=== PATIENT | female | born 1990 | race Caucasian/White ===

== ENCOUNTER 2018-07-04 09:53 | Outpatient (CLI) | payer MEDICAID, SELFPAY | END 2018-07-04 10:13 | PROVIDERS: PCP Nurse Practitioner Family; Visit Provider Advanced Practice Midwife | DX: O20.0 Threatened abortion (principal) | CPT/HCPCS: 36415; 84702 ==

== ENCOUNTER 2018-07-07 13:52 | Outpatient (CLI) | payer MEDICAID, SELFPAY ==
[2018-07-07 15:38] LABS: HCG Quant, Pregnancy 29967 mIU/mL (1-3)
== END 2018-07-07 14:12 ==
PROVIDERS: Advanced Practice Midwife; PCP Nurse Practitioner Family; Visit Provider Advanced Practice Midwife
DX: O02.1 Missed abortion (principal)
CPT/HCPCS: 36415; 84702

== ENCOUNTER 2018-07-13 12:19 | Outpatient (CLI) | payer MEDICAID, SELFPAY ==
[2018-07-13 15:22] LABS: HCG Quant, Pregnancy 861 mIU/mL (1-3)
== END 2018-07-13 12:39 ==
PROVIDERS: PCP Nurse Practitioner Family; Visit Provider Obstetrics & Gynecology Gynecology
DX: O02.1 Missed abortion (principal)
CPT/HCPCS: 36415; 84702

== ENCOUNTER 2018-07-21 11:41 | Outpatient (CLI) | payer MEDICAID, SELFPAY ==
[2018-07-21 13:04] LABS: HCG Quant, Pregnancy 169 mIU/mL (1-3)
== END 2018-07-21 12:01 ==
PROVIDERS: PCP Nurse Practitioner Family; Visit Provider Obstetrics & Gynecology Gynecology
DX: O03.9 Complete or unspecified spontaneous abortion without complication (principal)
CPT/HCPCS: 36415; 84702

== ENCOUNTER 2018-07-28 14:32 | Outpatient (CLI) | payer MEDICAID, SELFPAY ==
[2018-07-28 15:07] LABS: HCG Quant, Pregnancy 64 mIU/mL (1-3)
== END 2018-07-28 14:52 ==
PROVIDERS: PCP Nurse Practitioner Family; Visit Provider Obstetrics & Gynecology Gynecology
DX: O03.9 Complete or unspecified spontaneous abortion without complication (principal)
CPT/HCPCS: 36415; 84702

== ENCOUNTER 2018-08-09 16:09 | Outpatient (CLI) | payer MEDICAID, SELFPAY ==
[2018-08-09 16:48] LABS: HCG Quant, Pregnancy 1 mIU/mL (1-3)
== END 2018-08-09 16:29 ==
PROVIDERS: PCP Nurse Practitioner Family; Visit Provider Obstetrics & Gynecology Gynecology
DX: O03.9 Complete or unspecified spontaneous abortion without complication (principal)
CPT/HCPCS: 36415; 84702

== ENCOUNTER 2018-11-01 15:45 | Outpatient (CLI) | payer MEDICAID, SELFPAY ==
[2018-11-01 17:20] LABS: Abs Immature Grans 0.03 k/cumm (0.0-0.09); Absolute Basophil Count 0.01 k/cumm (0.0-0.2); Absolute Monocyte Count 0.79 k/cumm (0.11-0.7); Basophils % 0.1; HCT 40.7 % (36.0-46.0); Immature Grans % 0.2; Lymphocytes % 20.3; Mean Corp. HGB Concentration 34.4 g/dL (32.0-36.0); Mean Corpuscular Hemoglobin 27.6 pg (27.0-33.0); Mean Corpuscular Volume 80.3 fL (80-95); Mean Platelet Volume 10.3 fL (8.0-11.0); Monocytes % 5.9; Neutrophils % 73.5; Platelet Count 273 x1000/uL (130-400); RBC 5.07 m/cumm (4.00-5.20); RBC Distribution Width 13.5 % (11.7-14.6); White Blood Cell Count 13.37 k/cumm (4.4-10.8)
[2018-11-01 17:26] LABS: Absolute Lymphocyte Count 2.71 k/cumm (1.2-3.4); Absolute Neutrophil Count 9.83 k/cumm (1.2-6.7)
[2018-11-01 17:33] LABS: TSH (W/Ref FT4) 0.76 uIU/mL (0.358-3.74)
[2018-11-01 17:59] LABS: *AMPHETAMINES SCREEN URINE Negative (Negative); *BARBITURATES SCREEN URINE Negative (Negative); *BENZODIAZEPINES SCREEN URINE Negative (Negative); Cannabinoids THC Negative (Negative); Cocaine Screen,Urine Negative (Negative); METHADONE URINE SCREEN Negative (Negative); OPIATES URINE SCREEN Negative (Negative)
[2018-11-01 18:40] LABS: Tricyclic Antidepressants Negative (Negative)
[2018-11-03 09:50] LABS: Hepatitis C Ab w Rflx HCV PCR Negative (NEGAT)
[2018-11-03 09:55] LABS: HIV-1/2 Ag & Ab Screen Negative (NEGAT)
[2018-11-03 10:29] LABS: Hepatitis B Surface Ag Negative (NEGAT)
[2018-11-03 11:39] LABS: Rubella IgG Ab (UVM) Positive
[2018-11-03 12:01] LABS: Varicella IgG Antibody Negative
[2018-11-03 12:06] LABS: Syphilis Serology (RPR) Negative (Negative)
[2018-11-03 15:24] LABS: Chlamydia Result Negative; GC Result Negative; Specimen Description URINE
[2018-11-05 09:51] LABS: Buprenorphine Negative; Norbuprenorphine Negative
== END 2018-11-01 16:05 ==
PROVIDERS: PCP Nurse Practitioner Family; Visit Provider Advanced Practice Midwife
DX: Z34.91 Encounter for supervision of normal pregnancy, unspecified, first trimester (principal); Z11.4 Encounter for screening for human immunodeficiency virus [HIV]; Z11.59 Encounter for screening for other viral diseases; Z11.3 Encounter for screening for infections with a predominantly sexual mode of transmission; Z01.84 Encounter for antibody response examination
CPT/HCPCS: 36415; 80055; 80307; 86787; 86803; 86850; 86900; 86901; 87340; 87389; 87491; 87591; 84443; 86592; 86762; 87086

== ENCOUNTER 2018-11-29 16:47 | Outpatient (REF) | payer MEDICAID, SELFPAY ==
[2018-12-01 14:45] LABS: Chlamydia Result Negative; GC Result Negative; Specimen Description URINE
== END 2018-11-29 17:07 ==
LOC: LBN 16:47
PROVIDERS: PCP Nurse Practitioner Family; Visit Provider Advanced Practice Midwife
DX: Z34.91 Encounter for supervision of normal pregnancy, unspecified, first trimester (principal); Z11.3 Encounter for screening for infections with a predominantly sexual mode of transmission
CPT/HCPCS: 87491; 87591

== ENCOUNTER 2018-12-28 15:11 | Outpatient (CLI) | payer MEDICAID, SELFPAY ==
[2018-12-28 16:33] LABS: Glucose,1 Hr (Glucola) 108 mg/dL (80-140)
== END 2018-12-28 15:31 ==
PROVIDERS: PCP Nurse Practitioner Family; Visit Provider Advanced Practice Midwife
DX: Z34.92 Encounter for supervision of normal pregnancy, unspecified, second trimester (principal)
CPT/HCPCS: 36415; 82950

== ENCOUNTER 2019-01-06 00:56 | Outpatient (CLI) | payer MEDICAID, SELFPAY ==
--- NOTE | 2019-01-06 15:58 | DI.US_ITS ---
Predicted Gestational Age: Indication/History: SURVEY,Z34.90 18.2 Wks Range: 17.2 to 19.2 Prior US done on: Determined by: First US X LMP History EDC by prior US: 06/07/19 For multiple gestations: Baby PLACENTA: Grade: O-I Location: Anterior X Posterior PRESENTATION: RT LT X LOW LYING PREVIA Cephalic Trans (Head RT LT ) Varied X Breech BIOMETRY: Anatomy Identified: BPD: 44 mm 19.2 wks 4 chamber Heart X Heart Rate 149 BPM HC: 166 mm 19.2 wks LVOT X Post Fossa X AC: 137 mm 19.1 wks RVOT X Ventricles X FL: 29 mm 18.5 wks Stomach X Nose X Bladder X Lips X Cisterna Magna: 3.2 mm CI: 83 Kidneys X Palate X Cerebellum: 1.9 mm 3 vessel cord X Spine X EFW: 268 grms 85TH Cord Insertion X NS= not seen Composite Age (US) 19.1 wks Many abnormalities cannot be diagnosed. A normal exam does not exclude congenital abnormality. EDC by US 06/01/19 Amniotic Fluid Index: Normal COMMENTS: RUQ: LUQ: RLQ: LLQ: Total: cm Biophysical Profile: Score 0/2 FARHAD (>2cm) Respirations (>30 sec) Body flexion/extension Extremity flexion/extension TOTAL SCORE OB ultrasound was performed utilizing second trimester protocol. biometry is consistent with a gestational age of 19 weeks 1 day and an EDC of 06/01/19. Placenta is anterior with no evidence of a placenta previa. There is a normal quantity of amniotic fluid. anomaly screen is within normal limits as per the OB ultrasound worksheet.
== END 2019-01-06 01:16 ==
PROVIDERS: PCP Nurse Practitioner Family; Visit Provider Advanced Practice Midwife
DX: Z34.92 Encounter for supervision of normal pregnancy, unspecified, second trimester (principal)
CPT/HCPCS: 76805

== ENCOUNTER 2019-03-22 02:32 | Outpatient (CLI) | payer MEDICAID, SELFPAY ==
[2019-03-22 11:37] LABS: Glucose,1 Hr (Glucola) 123 mg/dL (80-140); HCT 36.7 % (36.0-46.0); HGB 12.6 g/dL (12.0-15.5); Mean Corp. HGB Concentration 34.3 g/dL (32.0-36.0); Mean Corpuscular Hemoglobin 28.1 pg (27.0-33.0); Mean Corpuscular Volume 81.9 fL (80-95); Mean Platelet Volume 10.7 fL (8.0-11.0); Platelet Count 245 x1000/uL (130-400); RBC 4.48 m/cumm (4.00-5.20); RBC Distribution Width 13.5 % (11.7-14.6); White Blood Cell Count 11.44 k/cumm (4.4-10.8)
== END 2019-03-22 02:52 ==
PROVIDERS: PCP Nurse Practitioner Family; Visit Provider Advanced Practice Midwife
DX: Z34.92 Encounter for supervision of normal pregnancy, unspecified, second trimester (principal)
CPT/HCPCS: 36415; 82950; 85027

== ENCOUNTER 2019-05-11 12:38 | Outpatient (REF) | payer MEDICAID, SELFPAY ==
[2019-05-11 14:30] LABS: PROTEIN 13.5 mg/dL
[2019-05-11 14:33] LABS: *AMPHETAMINES SCREEN URINE Negative (Negative); *BARBITURATES SCREEN URINE Negative (Negative); *BENZODIAZEPINES SCREEN URINE Negative (Negative); Cannabinoids THC Negative (Negative); Cocaine Screen,Urine Negative (Negative); METHADONE URINE SCREEN Negative (Negative); OPIATES URINE SCREEN Negative (Negative)
[2019-05-11 14:35] LABS: COMMENT (LAB VIEW ONLY) 144.34 mg/dL; Prot/Crea Ur Ratio 0.09
[2019-05-11 14:35] LABS: Tricyclic Antidepressants Negative (Negative)
[2019-05-17 21:08] LABS: Buprenorphine Negative; Norbuprenorphine Negative
== END 2019-05-11 12:58 ==
LOC: LBN 12:38
PROVIDERS: PCP Nurse Practitioner Family; Visit Provider Advanced Practice Midwife
DX: Z34.90 Encounter for supervision of normal pregnancy, unspecified, unspecified trimester (principal); Z87.59 Personal history of other complications of pregnancy, childbirth and the puerperium
CPT/HCPCS: 80307; 82565; 84156; 87081

== ENCOUNTER 2019-06-01 11:19 | Outpatient (CLI) | payer MEDICAID, SELFPAY | END 2019-06-01 11:39 | PROVIDERS: PCP Nurse Practitioner Family; Visit Provider Advanced Practice Midwife | DX: O36.8130 Decreased fetal movements, third trimester, not applicable or unspecified (principal); Z3A.39 39 weeks gestation of pregnancy | CPT/HCPCS: 59025 ==

== ENCOUNTER 2019-06-05 16:20 | Inpatient (IN) | payer MEDICAID, SELFPAY ==
[2019-06-05 18:15] LABS: HCT 39.1 % (36.0-46.0); HGB 13.6 g/dL (12.0-15.5); Mean Corp. HGB Concentration 34.8 g/dL (32.0-36.0); Mean Corpuscular Volume 80.6 fL (80-95); Mean Platelet Volume 11.2 fL (8.0-11.0); Platelet Count 210 x1000/uL (130-400); RBC 4.85 m/cumm (4.00-5.20); RBC Distribution Width 14.2 % (11.7-14.6); White Blood Cell Count 16.11 k/cumm (4.4-10.8)
[2019-06-06] MEDS: Ibuprofen 600 MG TAB PO ×2 (01:30→09:17)
[2019-06-06] MEDS: Acetaminophen 325 MG TAB 650 MG PO (01:30)
[2019-06-06] MEDS: Hamamelis Leaf/Glycerin 100 EACH BOX PR (01:30)
[2019-06-06] MEDS: Docusate Sodium 100 MG CAP PO (09:17)
== END 2019-06-06 19:45 | disposition home or self-care (01) | DRG 807 ==
PROVIDERS: Admitting Provider Advanced Practice Midwife; PCP Nurse Practitioner Family; Visit Provider Advanced Practice Midwife
DX: O80 Encounter for full-term uncomplicated delivery (principal); Z37.0 Single live birth; Z3A.39 39 weeks gestation of pregnancy; Z79.82 Long term (current) use of aspirin; Z87.59 Personal history of other complications of pregnancy, childbirth and the puerperium
CPT/HCPCS: 36415; 80053; 85027; 86850; 86900; 86901; 84550; G0378

== ENCOUNTER 2019-07-18 12:48 | Outpatient (REF) | payer MEDICAID, SELFPAY ==
--- NOTE | 2019-07-18 11:50 | PAPFT_PTH ---
PATIENT: Lydia Bates LOC: [facility] U#:[id number] AGE/SX: 29/F ROOM: RE07/18/[address]: Bridget Maddox : 1990 BED: DIS: 07/18/2019 SPEC #: [id number] RECD: 07/18/19 18:47 STATUS: JUANCHO REImelda #: [id number] JANES: 07/18/19 11:[address]: Bridget Maddox DEPT: [facility] Cytology RECD BY: Dianna Botello ENTERED: 07/18/19 18:47 SP TYPE: PAPFT DARYN DR: Susan Mckeon, KARUNA Tissues: 1 - CX/ENDOCX FOR PAP SMEARS Procedures: PAP THIN PREP/UVM Screening Comments: [id number]
== END 2019-07-18 13:08 ==
LOC: LBN 12:48
PROVIDERS: PCP Nurse Practitioner Family; Visit Provider Advanced Practice Midwife
DX: Z12.4 Encounter for screening for malignant neoplasm of cervix (principal)
CPT/HCPCS: 88142

== ENCOUNTER 2020-09-24 11:07 | Outpatient (CLI) | payer MEDICAID, SELFPAY ==
[2020-09-24 11:26] LABS: Abs Immature Grans 0.04 10^3/uL (0.0-0.06); Absolute Basophil Count 0.02 10^3/uL (0.0-0.2); Absolute Eosinophil Count 0.02 10^3/uL (0.0-0.7); Absolute Lymphocyte Count 2.08 10^3/uL (1.2-3.4); Absolute Monocyte Count 0.67 10^3/uL (0.1-0.8); Absolute Neutrophil Count 8.93 10^3/uL (1.2-6.7); Basophils % 0.2; Eosinophils % 0.2; HCT 39.5 % (36.0-46.0); HGB 13.5 g/dL (11.2-15.7); Immature Grans % 0.3; Lymphocytes % 17.7; MCH 28.1 pg (27.0-33.0); MCHC 34.2 % (32.0-36.0); MCV 82.3 fL (80-95); MPV 9.7 fL (8.0-11.0); Monocytes % 5.7; Neutrophils % 75.9; Nucleated RBC 0 %; Platelet Count 271 10^3/uL (130-400); RDW 12.5 % (11.7-14.6); RDW-SD 37.8 fL; WBC 11.76 10^3/uL (4.4-10.8)
[2020-09-24 12:40] LABS: TSH (W/Ref FT4) 0.84 uIU/mL (0.36-3.74)
[2020-09-24 17:00] LABS: *AMPHETAMINES SCREEN URINE Negative (Negative); *BARBITURATES SCREEN URINE Negative (Negative); *BENZODIAZEPINES SCREEN URINE Negative (Negative); Cannabinoids THC Negative (Negative); Cocaine Screen,Urine Negative (Negative); METHADONE URINE SCREEN Negative (Negative); OPIATES URINE SCREEN Negative (Negative)
[2020-09-24 17:22] LABS: Tricyclic Antidepressants POSITIVE (Negative)
[2020-09-25 10:05] LABS: Hepatitis C Ab w Rflx HCV PCR Negative (Negative)
[2020-09-25 10:39] LABS: Rubella IgG Ab (UVM) Positive (See Note); Varicella IgG Antibody Negative (See Note)
[2020-09-25 11:43] LABS: Hepatitis B Surface Ag Negative (Negative)
[2020-09-25 12:21] LABS: HIV-1/2 Ag & Ab Screen Negative (Negative)
[2020-09-25 14:50] LABS: Syphilis Total Ab w/Reflex Nonreactive (Nonreactive)
[2020-09-26 14:45] LABS: Chlamydia Result Negative (Negative); GC Result Negative (Negative)
[2020-09-29 15:13] LABS: Buprenorphine Negative; Norbuprenorphine Negative
== END 2020-09-24 11:27 ==
PROVIDERS: PCP Nurse Practitioner Family; Visit Provider Advanced Practice Midwife
DX: Z34.91 Encounter for supervision of normal pregnancy, unspecified, first trimester (principal)
CPT/HCPCS: 36415; 80307; 86787; 86803; 86850; 86900; 86901; 87340; 87389; 87491; 87591; 84443; 85025; 86762; 86780; 87086

== ENCOUNTER 2020-11-23 19:03 | Outpatient (REF) | payer MEDICAID, SELFPAY ==
[2020-11-23 19:28] LABS: *AMPHETAMINES SCREEN URINE Negative (Negative); *BARBITURATES SCREEN URINE Negative (Negative); *BENZODIAZEPINES SCREEN URINE Negative (Negative); Cannabinoids THC Negative (Negative); Cocaine Screen,Urine Negative (Negative); METHADONE URINE SCREEN Negative (Negative); OPIATES URINE SCREEN Negative (Negative)
[2020-11-23 19:36] LABS: Tricyclic Antidepressants Negative (Negative)
== END 2020-11-23 19:04 | disposition home or self-care (01) ==
LOC: LBN 19:03
PROVIDERS: PCP Nurse Practitioner Family; Visit Provider Advanced Practice Midwife
DX: Z34.92 Encounter for supervision of normal pregnancy, unspecified, second trimester (principal)
CPT/HCPCS: 80307; 87086

== ENCOUNTER 2021-01-15 03:25 | Outpatient (CLI) | payer MEDICAID, SELFPAY ==
[2021-01-15 12:26] LABS: HCT 36.6 % (36.0-46.0); HGB 12.4 g/dL (11.2-15.7); MCH 28.2 pg (27.0-33.0); MCHC 33.9 % (32.0-36.0); MCV 83.2 fL (80-95); MPV 10.3 fL (8.0-11.0); Platelet Count 263 10^3/uL (130-400); RDW 12.8 % (11.7-14.6); WBC 12.85 10^3/uL (4.4-10.8)
[2021-01-15 12:42] LABS: Glucose,1 Hr (Glucola) 102 mg/dL (80-140)
== END 2021-01-15 03:26 | disposition home or self-care (01) ==
LOC: LBO 03:26
PROVIDERS: Advanced Practice Midwife; PCP Nurse Practitioner Family; Visit Provider Advanced Practice Midwife
DX: Z34.92 Encounter for supervision of normal pregnancy, unspecified, second trimester (principal); Z3A.27 27 weeks gestation of pregnancy
CPT/HCPCS: 36415; 82950; 85027

== ENCOUNTER 2021-03-15 16:43 | Outpatient (REF) | payer MEDICAID, SELFPAY ==
[2021-03-15 18:15] LABS: *AMPHETAMINES SCREEN URINE Negative (Negative); *BARBITURATES SCREEN URINE Negative (Negative); *BENZODIAZEPINES SCREEN URINE Negative (Negative); Cannabinoids THC Negative (Negative); Cocaine Screen,Urine Negative (Negative); METHADONE URINE SCREEN Negative (Negative); OPIATES URINE SCREEN Negative (Negative)
[2021-03-15 18:16] LABS: Tricyclic Antidepressants Negative (Negative)
[2021-03-21 01:49] LABS: Buprenorphine Negative ng/mL (Cutoff: 5.0); Norbuprenorphine Negative ng/mL (Cutoff: 2.5)
== END 2021-03-15 16:44 | disposition home or self-care (01) ==
LOC: LBN 16:43
PROVIDERS: PCP Nurse Practitioner Family; Visit Provider Advanced Practice Midwife
DX: Z34.93 Encounter for supervision of normal pregnancy, unspecified, third trimester (principal); Z36.85 Encounter for antenatal screening for Streptococcus B; Z3A.36 36 weeks gestation of pregnancy
CPT/HCPCS: 80307; 87081

== ENCOUNTER 2021-04-01 11:06 | Outpatient (CLI) | payer MEDICAID, SELFPAY ==
[2021-04-01 11:17] VITALS: BP 124/73; PULSE 84
[2021-04-01 11:27] VITALS: BP 123/83; PULSE 82
[2021-04-01 11:37] VITALS: BP 127/82; PULSE 81
[2021-04-01 11:46] VITALS: BP 127/82; PULSE 81; TEMP 37
--- NOTE | 2021-04-05 12:03 | W.OBNST ---
Date of service: 04/01/21 Time of Service: 11:15 NST Evaluation Reason for NST Reasons for Nonstress Test: OTHER, SEE COMMENT Reason for NST Other: Elevated BP in office Gestational Age Gestational Age in Weeks and Days: 39 Weeks and 0Days Test and Monitor Explained Test/Monitor Explained: Test Explained, Monitor Explained and Patient Verbalized Understanding Vital Signs Blood Pressure: 127/82 Pulse: 81 Temperature: 98.6 F Urine Results Urine Protein: Negative Urine Ketones: Negative Urine Glucose: Negative Urine Blood: Negative NST Information Date on Monitor: 04/01/21 Time on Monitor: 11:07 Date off Monitor: 04/01/21 Time off Monitor: 11:44 Total Time on Monitor: 37 NST Interventions: PO Hydration Contraction Frequency: 4-6 NST Evaluation Patient States Movement: Present FHR Baseline: 135 Variability: Moderate 6-25 bpm Accelerations: 15x15 Decelerations: Variable NST Results: Reactive Note NST Note Note: Reactive NST, baseline 135, moderate variability and accelerations noted. CAT I. Regular contractions, likely early labor.WESLEY NST Reviewed and Verified by: Bridget Jalloh
[2021-04-05 12:05] VITALS: BP 127/82; PULSE 81; TEMP 37
--- NOTE | 2021-04-09 06:33 | W.OBNST ---
Date of service: 04/01/21 Time of Service: 12:00 NST Evaluation Reason for NST Reasons for Nonstress Test: OTHER, SEE COMMENT Reason for NST Other: Elevated BP in office Gestational Age Gestational Age in Weeks and Days: 39 Weeks and 0Days Test and Monitor Explained Test/Monitor Explained: Test Explained, Monitor Explained and Patient Verbalized Understanding Vital Signs Blood Pressure: 127/82 Pulse: 81 Temperature: 98.6 F Urine Results Urine Protein: Negative Urine Ketones: Negative Urine Glucose: Negative Urine Blood: Negative NST Information Date on Monitor: 04/01/21 Time on Monitor: 11:07 Date off Monitor: 04/01/21 Time off Monitor: 11:44 Total Time on Monitor: 37 NST Interventions: PO Hydration Contraction Frequency: 4-6 NST Evaluation Patient States Movement: Present FHR Baseline: 135 Variability: Moderate 6-25 bpm Accelerations: 15x15 Decelerations: Variable NST Results: Reactive Note NST Note NST Reviewed and Verified by: Violeta Zendejas
[2021-04-09 06:34] VITALS: BP 127/82; PULSE 81; TEMP 37
== END 2021-04-01 11:50 | disposition home or self-care (01) ==
LOC: BCD 11:08 → OBS 11:10
PROVIDERS: PCP Nurse Practitioner Family; Visit Provider Advanced Practice Midwife
DX: O26.893 Other specified pregnancy related conditions, third trimester (principal); R03.0 Elevated blood-pressure reading, without diagnosis of hypertension; Z3A.39 39 weeks gestation of pregnancy
CPT/HCPCS: 59025

== ENCOUNTER 2021-04-02 05:18 | Inpatient (IN) | payer MEDICAID, SELFPAY ==
[2021-04-02] VITALS (14 sets, daily range): BP systolic 113–139; BP diastolic 61–90; PULSE 86–113; RESP 16–18; TEMP 36.5–36.8
[2021-04-02 04:59] LABS: Source Nasal/Nares
--- NOTE | 2021-04-02 05:05 | W.PM.OBHPL1 ---
Date of service: 04/02/21 Time of Service: 05:05 Assessment and Plan Assessment and plan (1) Uterine contractions: Status: Acute Assessment and plan: will observe on triage assessment with plan to admit when 5-6 cm. will support non intervention at this time but obtain COVID swab as it is likely that patient will progress in labor. NST reactive will allow for FHT every hour if in tub and tracing on monitor every 2 hours or so until active labor. aware that patient is here in early labor by page system message. Expect advancing labor, admission and NVD.WESLEY OB-HPI Labor/Delivery History of Present Illness Reason for Visit: PRE-MARIZOL Chief Complaint: Uterine Contractions. CUAUHTEMOC Calculator Estimated Delivery Date Method Current WG Current Estimate 04/09/21 LMP (Certain) 39w 0d Other Estimates 04/10/21 Ultrasound #1 38w 6d Comments: 31 y.o. at 39w 0d states she started with irregular contractions at noon on 04/01/21 with increasing intensity and frequency to 5-8 minutes apart at 0300 on 04/02/21. No ROM or show. Baby has been active. Prefers to use tub and avoid interventions if possible. is present and supportive. Mild risk of PPH based on BMI but no history is aware of active management of third stage. Will observe and allow to rest and or use tub for labor relief. NST done. WESLEY History of Present Expected Delivery Route/Plan - CNM FOB/ - Gildardo Bates (3rd child with pt) BG- Faby Padilla Hopes to use tub for labor, maybe have a waterbirth Varicella Non-Immune, offer vaccination GBS negative Specific Issues/Plan 1. Needs early gct 2` to bmi>30. 1a. Declines early 1-hr GTT. Declination form signs. 2. Declines all optional labs, declination signed.al 3. History of anxiety/depression 4. Pos. tricyclic antidepressant on UDS- patient denies any meds- repeat UDS 11/23/20 was neg. 5. Varicella non-immune - offer vaccine post , pt counseled, patient is undecided re: vaccine post . 6. Had elevated BP at end of first preg, to start low dose ASA 81 mg/162 mg PO alternating, @ 20 wks Assessment: History Reviewed & Current Review of Systems All systems reviewed & are unremarkable except as noted in HPI and below PFSH Medical History Anxiety and depression Chlamydia Headache Lazy eye Childhood, resolved ovarian cysts Surgical History History of excision of hemangioma (11/13/16) Abdomen Family History Mother Depression Father Diabetes Essential hypertension Brother CD (Crohn's disease) Brother Hepatitis C Grandmother Diabetes Breast cancer Grandfather , Cancer at age 70. Neoplasm ?? primary Grandfather Heart disease Other Mental disorder Social History Smoking/Tobacco Use Status: Never Smoking risk assessment performed?: Yes Alcohol Intake: former Substance use type: does not use Adopted: No Caregiver/Support person: No Foster care: No Household members: spouse, children and other Details: daughter ~2yo Housing: house Number of Children: 2 Communication Needs: None Do you need help understanding health information?: Never Pets and animals: Yes Pets and animals: dog(s), fish and other Details: rabbit Sexually active: Yes Do you think of yourself as: straight/heterosexual Current gender identity: female What is your relationship status?: How often do you talk on the phone with friends or family?: twice per week How often do you get together with friends or relatives?: once per week How often do you attend christian or confucianist services?: 4 or more times per year Do you belong to any clubs or organized social groups?: no Panel score (0-1 are the most socially isolated patients): 3 What type of physical activity do you participate in: walking, aerobic and weight lifting Duration: 15-30 minutes/day Frequency: 1-2 times per week Gail/Sabianist: Uatsdin Special gail needs: No Seatbelt use: always Helmet use: Yes Drive intox or ride w/intox diesel pile driver operator: No Do you feel safe in your relationship?: Yes Female Reproductive History Menstrual control method: none History History 3 Para 2 Hx # Term Pregnancies 2 Multiple births 0 Hx # Pregnancies 0 Ectopic pregnancies 0 AB induced 0 Hx Number of Living Children 1 AB spontaneous 1 Past Pregnancies Del. Date GA/Weeks # Outcome Route Wgt Sex Labor Lgth Anesthesia Location Prov Complic 01/23/17 37 No Successful vaginal 5 lb 15 oz Female 5 hrs [facility] - Anea 07/07/18 8 Unsuccessful 06/05/19 39 No Successful vaginal 8 lb 1 oz Male 2 hrs 35 min [facility] AvelinaGOLDIE Delivery Date: 01/23/17 water broke at 37 wks, went into labor which was fast. Difficulty with latch, jaundice. Bridget Fountain Delivery Date: 07/07/18 missed SAB, took Violeta Villegas Delivery Date: 06/05/19 Bridget Soares Meds Allergies and Home Medications Allergies Allergy/AdvReac Type Severity Reaction Status Date / Time seasonal allergies AdvReac Mild Uncoded 04/02/21 05:11 Home Medications Medication Instructions Recorded Confirmed Type aspirin 81 mg tablet,delayed 81 mg PO DAILY #60 tab 11/23/20 11/23/20 Rx release cetirizine 10 mg tablet 10 mg PO DAILY PRN #30 tab 11/23/20 11/23/20 Rx vitamins with calcium 1 tab PO DAILY #90 tab 11/23/20 11/23/20 Rx no.72-iron 29 mg-folic acid 1 mg tablet cholecalciferol (vitamin D3) 50 4,000 unit PO DAILY cap 01/29/21 History mcg (2,000 unit) capsule magnesium oxide 400 mg PO DAILY #90 tab 03/15/21 03/15/21 Rx riboflavin (vitamin B2) 400 mg 400 mg PO DAILY #90 tab 03/15/21 03/15/21 Rx tablet Exam Physical Exam Vital signs: 136/84 pulse 103 this was obtained during a contraction.KH Vital Signs Reviewed: Yes Constitutional Constitutional: no acute distress and obese Detailed Labor and Delivery Exam Dilation: 3 Effacement (%): 90 station: -1 Position: ZACHARY Cervix position: posterior Consistency: soft Cruz Score: Cervical Points Exam 0 1 2 3 Dilation Closed 1-2cm 3-4 cm 5-6cm Effacement 0-30% 40-50% 60-70% 80% Consistency Firm Medium Soft Station -3 -2 -1,0 +1,+2 Position Posterior Mid Anterior CRUZ Score(Cervical Ripeness Score): 10 Amniotic Membrane Status: Intact Contraction Frequency(min): 3-5 Contraction Duration(sec): 40-60 Contraction Intensity: Moderate Fetus A Heart Rate Baseline: 125 Monitor Accelerations: 15 X 15 Monitor Decelerations: None Variability: Moderate (6-25 BPM) Presentation: Cephalic Categories: Category I Est. Weight: 7 lb HEENT Exam HEENT Exam: Normal Neck Exam Neck Exam: Normal Chest/Brest/Axilla Exam Chest Exam: Normal Breast Exam Breast Exam: Normal Respiratory Exam Respiratory Exam: Normal Cardiovascular Exam Cardiovascular Exam: Normal (mild tachycardia with contractions) Abdominal Exam Abdominal Exam: Normal Rectal Exam Rectal Exam: Not Done Exam Exam: Normal Extremities Exam Extremities Exam: Normal Back/Spine/Pelvis Exam Back Exam: Not Done Pelvis Adequate: Yes (proven to 8lb 1oz) Skin Exam Skin Exam: Normal Neurological Exam Neurological Exam: Normal Psychiatric Exam Psychiatric Exam: Normal Risk Assessment Risk for Shoulder Dystocia Historical/Initial OB: POSITIVE FOR: Pre- BMI>30; NEGATIVE FOR: Pelvic Abnormality, Previous Shoulder Dystocia or Previous Macrosomia 40 Weeks: NEGATIVE FOR: EFW> 4500 gms, Maternal Weight Gain >40lb or Post Dates Increased Risk?: No Delivery Plan @ 36wks: proven to 8'1 Risk for Pre-Eclampsia Daily Dose ASA Indicated: Yes Date Initiated/Initials: will start 11/22/18, JK Yes, if one or more: POSTIVE FOR: Hx Pre-E/Gest HTN (delivered prior to w/up); NEGATIVE FOR: Chronic HTN, Multiple Gestation, Pre-gestational DM, Renal Disease, Systemic Lupus or APA Syndrome Yes, if 2 or more: POSITIVE FOR: BMI>30; NEGATIVE FOR: Nulliparity, Age>= 35 yrs, >10yr btwn pregnancies, ethinicty, Mother/Sister w/ Pre-E or Previous IUGR Risk for Post- Hemorrhage Initial: NEGATIVE FOR: Multiple Gestation, Previous PPH, Known Clotting Deficiency, Grand Multiparity or Anticoagulation At Risk?: No Interventions: may be slight increased risk due to BMI.KH Counseled re: Active Management: Yes Risks Reviewed Risks Reviewed Upon Admission: Yes
[2021-04-02 05:49] LABS: COVID-19 PCR Negative (Negative)
[2021-04-02] MEDS: Oxytocin 10 UNITS/ML VIAL IM (06:45)
--- NOTE | 2021-04-02 07:12 | OBVDS_ITS ---
Date of service: 04/02/21 Time of Service: 07:12 OB Labor/ Delivery Information Baby A Delivery Delivery Method: Spontaneaous Presentation: Cephalic Cephalic Position: Vertex Vertex Position: Left Occipital Anterior Cord Description-Baby A: 3 Vessels and Clamped/Cut Cord Description Comment: normal in appearance Amniotic Fluid: Clear Estimated Blood Loss: 200 Delivery Outcome: Liveborn Infant Complications: none Infant Transferred: Remains with Mother Note: Lydia progressed quickly in 1 hour from 3cm to 9 and urge to bear down. she moved to tub for waterbirth. With excellent bearing down effort, a live born female was delivered over intact perienum at 0643. Baby was brought to Mother's chest with lower body remaining in warm water. 9 at 1 minute and 9 at 5 minutes. After baby was born, Pitocin 10 units IM was given. Placenta delivered spontaneously at 0656, intact. Fundus firms and Mother is moved from tub to bed to inspect perineum and vagina which were again noted to be intact. Fundus firm at U, with small lochia. Baby will remain with Mother skin to skin for grullon hour and breast feeding is established as long as baby is well. Parents use NFP for contraception. Mia Padilla is baby's name. Mother and baby are in satisfactory condition. Expect normal PP course and probable discharge in 24 hours. See completed delivery summary for baby's weight. Providers Nurse Back Tender Fourdrinier: Bridget Jalloh Labor/Delivery Information Number of Babies in Womb: 1 Steroids Given: None Reason Steroids Not Administered: N/A Group Beta Strep: Negative Antibiotics Administered: No Rubella Status: Immune Varicella Immunity: Nonimmune Born En Route: No Maternal Complications: None Shoulder Dystocia: No Stages of Labor Placenta Cultured: No Placenta Status: Delivered Baby A Gender: Female Gestational Status: Term (39-41.6 wks)
[2021-04-02 07:48] LABS: HGB 13.7 g/dL (11.2-15.7); MCH 27.5 pg (27.0-33.0); MCHC 33.4 % (32.0-36.0); MCV 82.2 fL (80-95); MPV 11.1 fL (8.0-11.0); Platelet Count 219 10^3/uL (130-400); RBC 4.99 10^6/uL (3.93-5.22); RDW 13.9 % (11.7-14.6); RDW-SD 40.9 fL
[2021-04-02] MEDS: Acetaminophen 325 MG TAB 650 MG PO ×2 (08:28→20:07)
[2021-04-02] MEDS: Varicella Virus Vaccine (Live) 0.5 ML SC (13:05)
[2021-04-02] MEDS: Ibuprofen 600 MG TAB PO (16:32)
[2021-04-02] MEDS: Docusate Sodium 100 MG CAP PO (22:05)
[2021-04-03 07:30] VITALS: BP 118/83; PULSE 84; RESP 14; TEMP 36.7
--- NOTE | 2021-04-03 10:48 | W.PM.OBDISCH ---
Date of service: 04/03/21 Time of Service: 10:49 DS: Diagnosis Discharge Diagnosis (1) Normal vaginal delivery: Status: Acute Asessment and Plan: Caring for baby independently. Pain is managed well with oral analgesics. Voiding without difficulty. well. Lydia has had difficulty with in the past and is knowledgeable about positions to assist with latch. A - stable mother and baby , Post day 1 P - Discharge to home today . Routine post instructions. [facility] Discharge Plan Discharge Details Reason For Visit: Latent Labor Admit Date/Time: 04/02/21 06:28 Admit Provider: Bridget Jalloh Attending Provider: Bridget Jalloh Primary Care Provider: Susan Mckeon Home Meds and New Rx's Prescriptions: Continued riboflavin (vitamin B2) 400 mg tablet 400 mg PO DAILY Qty: 90 RF: 1 magnesium oxide 400 mg magnesium tablet 400 mg PO DAILY Qty: 90 RF: 1 cholecalciferol (vitamin D3) 50 mcg (2,000 unit) capsule 4,000 unit PO DAILY RF: 0 Plus 29 mg iron- 1 mg tablet 1 tab PO DAILY Qty: 90 RF: 2 cetirizine [Zyrtec] 10 mg tablet 10 mg PO DAILY PRN (Reason: allergy symptoms) Qty: 30 RF: 1 Discontinued aspirin 81 mg tablet,delayed release (DR/EC) 81 mg PO DAILY Qty: 60 RF: 4 Discharge Instructions Stand Alone Forms: BC Instructions, BC Post Vaginal Deliver Activity:: Activity as Tolerated Activity:: Activity as Tolerated Equipment/Supplies:: No Equipment Needed Diet:: As Tolerated OB:DS Summary Summary Vaginal Delivery Method: Spontaneaous Episiotomy Description: None Laceration Description: None Laceration Extension: N/A Contraception Discussed Contraception Discussed: Yes Contraceptive Plan: Foam/Condoms (with Natural Family Planning.), [place] Infant Gender-Baby A: Female Status at Discharge Functional status at discharge: independent ambulation Overall status at discharge: patient is back to baseline Mental Status: mental status grossly normal Speech and Movement: speech and movement normal Mood: congruent mood Affect: normal affect Exam Physical Exam Vital signs: Temp Pulse Resp BP 98.1 F 84 14 118/83 04/03/21 07:30 04/03/21 07:30 04/03/21 07:30 04/03/21 07:30 Constitutional Constitutional: no acute distress Neck Exam Neck Exam: Normal Respiratory Exam Respiratory Exam: Normal Cardiovascular Exam Cardiovascular Exam: Normal Fundal Exam Fundus: Below Umbilicus Rectal Exam Rectal Exam: Normal Extremities Exam Extremity Exam: Normal Back/Spine/Pelvis Exam Back Exam: Normal Skin Exam Skin Exam: Normal Psychiatric Exam Psychiatric Exam: Normal [facility] Medical History Anxiety and depression Chlamydia Headache Lazy eye Childhood, resolved ovarian cysts Surgical History History of excision of hemangioma (11/13/16) Abdomen Family History Mother Depression Father Diabetes Essential hypertension Brother CD (Crohn's disease) Brother Hepatitis C Grandmother Diabetes Breast cancer Grandfather , Cancer at age 70. Neoplasm ?? primary Grandfather Heart disease Other Mental disorder Social History Smoking/Tobacco Use Status: Never Smoking risk assessment performed?: Yes Alcohol Intake: former Substance use type: does not use Adopted: No Caregiver/Support person: No Foster care: No Household members: spouse, children and other Details: daughter ~2yo Housing: house Number of Children: 2 Communication Needs: None Do you need help understanding health information?: Never Pets and animals: Yes Pets and animals: dog(s), fish and other Details: rabbit Sexually active: Yes Do you think of yourself as: straight/heterosexual Current gender identity: female What is your relationship status?: How often do you talk on the phone with friends or family?: twice per week How often do you get together with friends or relatives?: once per week How often do you attend yazidi or latter-day services?: 4 or more times per year Do you belong to any clubs or organized social groups?: no Panel score (0-1 are the most socially isolated patients): 3 What type of physical activity do you participate in: walking, aerobic and weight lifting Duration: 15-30 minutes/day Frequency: 1-2 times per week Gail/Catholic: Restoration Special gail needs: No Seatbelt use: always Helmet use: Yes Drive intox or ride w/intox driver utility worker: No Do you feel safe in your relationship?: Yes Female Reproductive History Menstrual control method: none History History 3 Para 2 Hx # Term Pregnancies 2 Multiple births 0 Hx # Pregnancies 0 Ectopic pregnancies 0 AB induced 0 Hx Number of Living Children 1 AB spontaneous 1 Past Pregnancies Del. Date GA/Weeks # Outcome Route Wgt Sex Labor Lgth Anesthesia Location Prov Complic 01/23/17 37 No Successful vaginal 5 lb 15 oz Female 5 hrs [facility] - [facility] 07/07/18 8 Unsuccessful 06/05/19 39 No Successful vaginal 8 lb 1 oz Male 2 hrs 35 min [facility] GOLDIE Quan Delivery Date: 01/23/17 water broke at 37 wks, went into labor which was fast. Difficulty with latch, jaundice. Bridget Fountain Delivery Date: 07/07/18 missed SAB, took Violeta Villegas Delivery Date: 06/05/19 Bridget Soares DS: Data Vitals/I&O Vitals and I&O: Vital Signs Temperature 98.1 F 04/03/21 07:30 Pulse 84 04/03/21 07:30 Pulse Rhythm Regular 04/03/21 07:30 Respiratory Rate 14 04/03/21 07:30 Respiratory Depth Normal 04/02/21 19:30 Blood Pressure 118/83 04/03/21 07:30 Blood Pressure Mean 94 04/03/21 07:30 Pain Level 3 04/02/21 16:32 Intake & Output 04/02/21 04/02/21 04/03/21 11:59 23:59 11:59 Output Total 500 / 2410 1909 Balance -500 / -2410 -1909 / -2409 Output: Urine 1909 Blood 500 / 500 Other: Urine Color Yellow Yellow Dark Red
== END 2021-04-03 13:05 | disposition home or self-care (01) | DRG 807 ==
PROVIDERS: Admitting Provider Advanced Practice Midwife; PCP Nurse Practitioner Family; Visit Provider Advanced Practice Midwife
DX: O99.344 Other mental disorders complicating childbirth (principal); Z37.0 Single live birth; F41.8 Other specified anxiety disorders; Z3A.39 39 weeks gestation of pregnancy
CPT/HCPCS: 36415; 85027; 86850; 86900; 86901; 87635; G0378; J2590

== ENCOUNTER 2022-12-23 02:31 | Outpatient (CLI) | payer MEDICAID, SELFPAY ==
[2022-12-23 10:19] LABS: Glucose 103 mg/dL (74-106)
[2022-12-23 10:32] LABS: Calculated LDL 88 mg/dL (<100); Cholesterol 162 mg/dL (<200); HDL Cholesterol 56 mg/dL (40-60); Triglyceride 91 mg/dL (<150)
== END 2022-12-23 02:32 | disposition home or self-care (01) ==
LOC: LBO 02:32
PROVIDERS: PCP Nurse Practitioner Family; Visit Provider Nurse Practitioner Family
DX: R63.5 Abnormal weight gain (principal); E78.5 Hyperlipidemia, unspecified; Z13.1 Encounter for screening for diabetes mellitus
CPT/HCPCS: 36415; 80061; 82947; 84443

== ENCOUNTER 2023-01-12 11:49 | Outpatient (REF) | payer MEDICAID, SELFPAY ==
--- NOTE | 2023-01-12 11:30 | PAPFT_PTH ---
PATIENT: Lydia Bates LOC: [facility] U#:[id number] AGE/SX: 33/F ROOM: RE01/12/[address]: June Barker NP : 1990 BED: DIS: 01/12/2023 SPEC #: [id number] RECD: 01/12/23 12:55 STATUS: JUANCHO REImelda #: [id number] JANES: 01/12/23 11:[address]: Mj MANJARREZ,June DEPT: [facility] Cytology RECD BY: Dianna Botello ENTERED: 01/12/23 12:55 SP TYPE: PAPFT OTHR DR: Susan Mckeon APRN Tissues: 1 - CX/ENDOCX FOR PAP SMEARS Procedures: PAP THIN PREP/UVM Screening HPV DNA PROBE Comments: [id number]
== END 2023-01-12 11:50 | disposition home or self-care (01) ==
LOC: LBN 11:49
PROVIDERS: PCP Nurse Practitioner Family; Visit Provider Nurse Practitioner Women's Health
DX: Z12.4 Encounter for screening for malignant neoplasm of cervix (principal); Z11.51 Encounter for screening for human papillomavirus (HPV)
CPT/HCPCS: 88142; 87624

== ENCOUNTER 2023-10-23 02:45 | Outpatient (CLI) | payer MEDICAID, SELFPAY ==
[2023-10-23 14:27] LABS: Abs Immature Grans 0.03 10^3/uL (0.0-0.06); Absolute Basophil Count 0.02 10^3/uL (0.0-0.2); Absolute Eosinophil Count 0.02 10^3/uL (0.0-0.7); Absolute Lymphocyte Count 2.15 10^3/uL (1.2-3.4); Absolute Monocyte Count 0.51 10^3/uL (0.1-0.8); Absolute Neutrophil Count 7.45 10^3/uL (1.2-6.7); Basophils % 0.2; Eosinophils % 0.2; HCT 40.4 % (36.0-46.0); HGB 13.6 g/dL (11.2-15.7); Immature Grans % 0.3; Lymphocytes % 21.1; MCHC 33.7 % (32.0-36.0); MCV 80 fL (80-95); MPV 10.2 fL (8.0-11.0); Neutrophils % 73.2; Platelet Count 292 10^3/uL (130-400); RBC 5.03 10^6/uL (3.93-5.22); RDW 12.6 % (11.7-14.6); RDW-SD 36.6 fL; WBC 10.18 10^3/uL (4.4-10.8)
[2023-10-23 14:41] LABS: Glucose,1 Hr (Glucola) 113 mg/dL (80-140)
[2023-10-23 22:31] LABS: Hepatitis B Surface Ag Negative (Negative)
[2023-10-23 23:00] LABS: Hepatitis C Ab w Rflx HCV PCR Negative (Negative)
[2023-10-23 23:02] LABS: HIV-1/2 Ag & Ab Screen Negative (Negative)
[2023-10-25 15:33] LABS: Syphilis IgG w/Reflex Nonreactive (Nonreactive)
[2023-10-26 10:31] LABS: Varicella IgG Antibody Positive (See Note)
[2023-10-26 10:32] LABS: Rubella IgG Ab (UVM) Positive (See Note)
== END 2023-10-23 02:46 | disposition home or self-care (01) ==
LOC: LBO 02:45
PROVIDERS: PCP Nurse Practitioner Family; Visit Provider Advanced Practice Midwife
DX: Z34.91 Encounter for supervision of normal pregnancy, unspecified, first trimester (principal)
CPT/HCPCS: 36415; 82950; 86787; 86803; 86850; 86900; 86901; 87340; 87389; 84443; 85025; 86762; 86780

== ENCOUNTER 2023-10-23 14:31 | Outpatient (REF) | payer MEDICAID, SELFPAY ==
[2023-10-25 13:42] LABS: Chlamydia Result Negative (Negative); GC Result Negative (Negative)
== END 2023-10-23 14:32 | disposition home or self-care (01) ==
LOC: LBN 14:31
PROVIDERS: PCP Nurse Practitioner Family; Visit Provider Advanced Practice Midwife
DX: Z34.91 Encounter for supervision of normal pregnancy, unspecified, first trimester (principal)
CPT/HCPCS: 87491; 87591; 87086

== ENCOUNTER 2023-11-13 16:24 | Outpatient (CLI) | payer MEDICAID, SELFPAY ==
[2023-11-13 16:18] LABS: Panorama Kit Sent via Fed Ex
== END 2023-11-13 16:25 | disposition home or self-care (01) ==
LOC: LBO 16:24
PROVIDERS: PCP Nurse Practitioner Family; Visit Provider Advanced Practice Midwife
DX: Z34.92 Encounter for supervision of normal pregnancy, unspecified, second trimester (principal)
CPT/HCPCS: 36415

== ENCOUNTER → 2023-12-14 03:16 | Outpatient (CLI) | payer MEDICAID, SELFPAY ==
--- NOTE | 2023-12-14 08:15 | DI.US_ITS ---
Exam(s) US OB 2-3 TRIMESTER EXAM: US OB 2-3 TRIMESTER CLINICAL HISTORY: anatomy,Z34.91. TECHNIQUE: Transabdominal obstetrical ultrasound performed. COMPARISON: US POCUS EXAM from 10/23/2023 FINDINGS: Number of fetuses: One. position: Vertex. Placental grade: 1 Placental location: Anterior. Low lying. The placental edge measures 1 cm from the internal os. BIOMETRIC DATA: BPD: 44mm = 19+ 2 weeks HC: 164mm = 19+ 1 weeks AC: 137mm = 19+ 1 weeks FL: 31mm = 19+ 4 weeks Cisterna Magna: 5 mm Cerebellum: 1.8 cm EFW: 286 grms 87% Composite Age: 19+ 2 weeks EDC by US: 07 May 2024 Heart Rate: 148BPM Amniotic fluid : Amount of fluid is within normal limits. ANATOMICAL SURVEY: Four-chambered heart: Unremarkable. LVOT: Unremarkable. RVOT: Unremarkable. Left-sided stomach: Unremarkable. urinary bladder: Unremarkable. Bilateral kidneys: Unremarkable. Three-vessel cord: Unremarkable. Cord insertion: Unremarkable. Posterior fossa:Unremarkable. ventricles: Unremarkable. nose: Unremarkable. lips: Unremarkable. palate: Unremarkable. spine: Unremarkable. Two arms and two legs: Unremarkable. IMPRESSION: 1. Single live intrauterine gestation with ultrasound composite age of 19 weeks 2 days.. 2. Normal anatomic survey. DATA REPOSITORY:
== END ==
PROVIDERS: PCP Nurse Practitioner Family; Visit Provider Advanced Practice Midwife
DX: O44.42 Low lying placenta NOS or without hemorrhage, second trimester (principal); Z3A.19 19 weeks gestation of pregnancy
CPT/HCPCS: 76805

== ENCOUNTER → 2024-02-22 04:24 | Outpatient (CLI) | payer MEDICAID, SELFPAY ==
--- NOTE | 2024-02-22 07:15 | DI.US_ITS ---
Exam(s) US OB F/U FACIAL/LVOT/RVOT EXAM: US OB F/U FACIAL/LVOT/RVOT CLINICAL HISTORY: f/u placental location,O44.40. COMPARISON: US US OB 2-3 TRIMESTER from 12/14/2023 TECHNIQUE: Transabdominal obstetrical ultrasound performed. FINDINGS: Sonographic images demonstrate a single intrauterine gestation in cephalic position. heart rate motion is Dopplered at: 142 bpm. nose/lips: Unremarkable. Placenta: Anterior. The tip lies 9.5 cm from the internal os. Amniotic fluid index: Amount of fluid is within normal limits. IMPRESSION: Anterior placenta. Placenta is no longer low lying. DATA REPOSITORY:
== END ==
PROVIDERS: PCP Nurse Practitioner Family; Visit Provider Advanced Practice Midwife
DX: O44.42 Low lying placenta NOS or without hemorrhage, second trimester (principal); Z3A.22 22 weeks gestation of pregnancy
CPT/HCPCS: 76815

== ENCOUNTER 2024-04-15 15:18 | Outpatient (REF) | payer MEDICAID, SELFPAY | END 2024-04-15 15:19 | disposition home or self-care (01) | LOC: LBN 15:18 | PROVIDERS: PCP Nurse Practitioner Family; Visit Provider Advanced Practice Midwife | DX: Z34.93 Encounter for supervision of normal pregnancy, unspecified, third trimester (principal); Z36.85 Encounter for antenatal screening for Streptococcus B; Z3A.36 36 weeks gestation of pregnancy | CPT/HCPCS: 87081 ==

== ENCOUNTER 2024-05-05 01:48 | Inpatient (IN) | payer MEDICAID, SELFPAY ==
[2024-05-05] VITALS (14 sets, daily range): BP systolic 110–138; BP diastolic 65–85; PULSE 67–101; RESP 16–18; TEMP 36.6–36.9; O2SAT 97–99
[2024-05-05] MEDS: Oxytocin 10 UNITS/ML VIAL IM (03:45)
--- NOTE | 2024-05-05 03:56 | HPE_ITS ---
Date of service: 05/05/24 Time of Service: 03:56 Assessment and Plan Assessment and plan (1) Spontaneous onset of labor: Status: Acute Assessment and plan: Admit to Center and routine admission labs. Comfort measures. Anticipate imminent . OB-HPI Labor/Delivery History of Present Illness Reason for Visit: labor Chief Complaint: Uterine Contractions. CUAUHTEMOC Calculator Estimated Delivery Date Method WG Current Estimate 05/12/24 LMP (Certain) Other Estimates 05/12/24 Ultrasound #1 Delivery Date-Baby A 05/05/24 39w 0d Comments: Zahra presented to the center with report of regular contractions which were every 4 minutes and intact membranes. Exam by RN was 3 cms and posterior. Upon my arrival the contractions were stronger. History of Present Expected Delivery Route/Plan - CNM FOB/ - Speedy SALGADO- name is a surprise Desires waterbirth, wants to latch baby as soon as possible after delivery GBS negative Specific Issues/Plan 1. early [id number], declines all genetic screens 1a. changed her mind, desires cfDNA @ 14 wks, low risk x5 female 2. History of fast labors 3. Elevated BP's with first and BMI >30, will do low dose ASA 4. Low lying placenta @ 18 wks, will recheck @ 28 wks - placenta 9.5 cms from os Assessment: History Reviewed & Current PFSH All Active Problems (Updated 05/05/24 @ 03:59 by Bridget Maddox CNM) Spontaneous onset of labor (Acute) BMI 34.0-34.9,adult (Acute) Medical History (Updated 05/05/24 @ 03:59 by Bridget Maddox CNM) Ovarian cyst Tonsil stone Anxiety and depression Chlamydia Headache Lazy eye Childhood, resolved Surgical History History of excision of hemangioma (11/13/16) Abdomen Family History Mother Depression Anxiety Father Diabetes Essential hypertension Hypertension Brother CD (Crohn's disease) Brother Hepatitis C Grandmother Diabetes Breast cancer Grandfather , Cancer at age 70. 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) Pets and animals: Yes Pets and animals: dog(s), fish and other Details: rabbit Sexually active: Yes Do you think of yourself as: straight/heterosexual Current gender identity: female What is your relationship status?: How often do you talk on the phone with friends or family?: once per week How often do you get together with friends or relatives?: once per week How often do you attend gnosticist or moravian services?: 4 or more times per year Do you belong to any clubs or organized social groups?: no Panel score (0-1 are the most socially isolated patients): 2 What type of physical activity do you participate in: walking, aerobic and weight lifting Duration: 30-45 minutes/day Frequency: 1-2 times per week Gail/Episcopalian: Lutheran Special gail needs: No Seatbelt use: always Helmet use: Yes Drive intox or ride w/intox warehouse associate driver: No Do you feel safe in your relationship?: Yes Female Reproductive History Menstrual control method: none and condoms History History 5 Para 3 Hx # Term Pregnancies 3 Multiple births 0 Hx # Pregnancies 0 Ectopic pregnancies 0 AB induced 0 Hx Number of Living Children 3 AB spontaneous 1 Past Pregnancies Del. Date GA/Weeks # Preg Succ Route Wgt Sex Labor Lgth Anesth esia Location Prov Complic 01/23/17 37 No vaginal 5 lb 15 oz Female 5 hrs [facility] - [facility] 07/07/18 8 06/05/19 39 No vaginal 8 lb 1 oz Male 2 hrs 35 min Fabian Quan CNM 04/02/21 39 No vaginal 6 lb 8 oz Female 4 K.Filiberto mlies CNM Delivery Date: 01/23/17 Last Updated by: Bridget Maddox CNM water broke at 37 wks, went into labor which was fast. Difficulty with latch, jaundice. Tran Delivery Date: 07/07/18 Last Updated by: VioletaGuillen missed SAB, took miso Delivery Date: 06/05/19 Last Updated by: Bridget Maddox CNM Roberto Delivery Date: 04/02/21 Last Updated by: RENE Monahan Meds Allergies and Home Medications Allergies Allergy/AdvReac Type Severity Reaction Status Date / Time seasonal allergies AdvReac Mild Other (See Uncoded 04/29/24 15:47 Comment) Home Medications ?Medication ?Instructions ?Recorded ?Confirmed ?Type cetirizine 10 mg tablet (Zyrtec) 10 mg PO DAILY PRN allergy 06/25/22 04/30/24 Rx symptoms #30 tabs cholecalciferol (vitamin D3) 125 125 mcg PO DAILY 10/23/23 04/30/24 History mcg (5,000 unit) capsule aspirin 81 mg tablet,delayed 81 mg PO DAILY #90 tabs 11/13/23 04/30/24 Rx release magnesium oxide 400 mg (241.3 mg 400 mg PO DAILY #60 tabs 12/14/23 04/30/24 Rx magnesium) tablet prenat.vits,edwin,eyy-dxag-eztrd 1 tab PO DAILY #90 tab-caps 12/30/23 04/30/24 Rx Exam Physical Exam Vital signs: Temp Pulse Resp BP 97.8 F 83 18 126/71 05/05/24 01:55 05/05/24 03:47 05/05/24 01:55 05/05/24 03:47 Vital Signs Reviewed: Yes Constitutional Constitutional: mild distress Detailed Labor and Delivery Exam Dilation: 7 Effacement (%): 100 station: +1 Cervix position: mid Consistency: soft Fofana Score: Cervical Points Exam 0 1 2 3 Dilation Closed 1-2cm 3-4 cm 5-6cm Effacement 0-30% 40-50% 60-70% 80% Consistency Firm Medium Soft Station -3 -2 -1,0 +1,+2 Position Posterior Mid Anterior Amniotic Membrane Status: Intact Monitor Mode: External Contraction Frequency(min): every 2-3 Contraction Duration(sec): 60 + Contraction Intensity: Strong Fetus A Heart Rate Baseline: 130 Monitor Accelerations: 15 X 15 Monitor Decelerations: None Variability: Moderate (6-25 BPM) Presentation: Cephalic Categories: Category I Date of Membrane Rupture: 05/05/24 Time of Membrane Rupture: 03:25 Respiratory Exam Respiratory Exam: Normal Cardiovascular Exam Cardiovascular Exam: Normal Abdominal Exam Abdominal Exam: Normal Exam Exam: Normal Extremities Exam Extremities Exam: Normal Back/Spine/Pelvis Exam Pelvis Adequate: Yes Skin Exam Skin Exam: Normal Psychiatric Exam Psychiatric Exam: Normal Risk Assessment Risk for Shoulder Dystocia Historical/Initial OB: POSITIVE FOR: Pre- BMI>30; NEGATIVE FOR: Pelvic Abnormality, Previous Shoulder Dystocia or Previous Macrosomia 36 Weeks: NEGATIVE FOR: Current Gestational DM, EFW>4500gms or Maternal Weight Gain>40lbs 40 Weeks: NEGATIVE FOR: EFW> 4500 gms, Maternal Weight Gain >40lb or Post Dates Increased Risk?: No Delivery Plan @ 36wks: proven to 8'1 Risk for Pre-Eclampsia Date Initiated/Initials: 10/23/23 KH Yes, if one or more: POSTIVE FOR: Hx Pre-E/Gest HTN (end of first , no pre-eclampsia or meds); NEGATIVE FOR: Chronic HTN, Multiple Gestation, Pre-gestational DM, Renal Disease, Systemic Lupus or APA Syndrome Yes, if 2 or more: POSITIVE FOR: BMI>30; NEGATIVE FOR: Nulliparity, Age>= 35 yrs, >10yr btwn pregnancies, ethinicty, Mother/Sister w/ Pre-E or Previous IUGR Risk for Post- Hemorrhage Initial: NEGATIVE FOR: Multiple Gestation, Previous PPH, Known Clotting Deficie ncy, Grand Multiparity or Anticoagulation 36 Weeks: NEGATIVE FOR: Anemia, hgb<10, Low platelets(thrombocytopenia), Gestational HTN or Pre-E, Polyhydraminios or EFW>4500gms 40 Weeks: NEGATIVE FOR: Anemia, hgb<10, Low platelets (thrombocytopenia), Gestation HTN or Pre-E, Polyhydraminios or EFW>4500gms Counseled re: Active Management: Yes Date/Initials: 10/23/23 Risks Reviewed Risks Reviewed Upon Admission: Yes
--- NOTE | 2024-05-05 04:30 | OBVDS_ITS ---
Date of service: 05/05/24 Time of Service: 04:30 OB Labor/ Delivery Information Baby A Delivery Delivery Method: Spontaneaous Presentation: Cephalic Cephalic Position: Vertex Vertex Position: Right Occipital Anterior Cord Description-Baby A: 3 Vessels Amniotic Fluid: Clear Estimated Blood Loss: 200 Delivery Outcome: Liveborn Transferred: Remains with Mother Note: Zahra progressed into active labor and progressed rapidly. FHTs 130s during first stage of labor. FHTs 130s in second stage by doppler. She progressed to full dilation and membranes ruptured spontaneously and she began pushing. Spontaneous delivery of female delivered in SANDRA position. Baby was placed on mother's abdomen and dried and stimulated. Spontaneous cry. Cord was clamped and cut by the baby's father . The placenta delivered spontaneously and appears to by intact with a three vessel cord. Pitocin 10 units was administered after delivery of the placenta. The perineum was inspected and it was intact. The baby did breastfeed. After delivery, Mother and baby and father of the baby were stable and bonding well in the delivery room and there were no complications. Providers Nurse Washroom Cleaner: Bridget Maddox Embedded Systems Designer: Bryon Cavazos Nurse: Xiomara Collins Nurse: Althea Yadav Labor/Delivery Information Number of Babies in Womb: 1 Group Beta Strep: Negative Antibiotics Administered: No Rubella Status: Immune Blood Type: O+ Varicella Immunity: Immune Born En Route: No Maternal Complications: None Shoulder Dystocia: No Stages of Labor Onset of Labor Date: 05/04/24 Onset of Labor Time: 13:00 Complete Dilatation Date: 05/05/24 ROM Baby A: 05/05/24 ROM Baby A: 03:25 ROM Total Time- Baby A: [id number] Delivery Date-Baby A: 05/05/24 Infant Delivery Time-Baby A: 03:28 Placenta Delivery Date-Baby A: 05/05/24 Placenta Delivery Time-Baby A: 03:35 Labor-Stage 3 Duration: 7 minutes Total Length of Labor-Baby A: 14 hours and 28 minutes Placenta Status: Delivered Baby A Infant Gender: Female Gestational Status: Term (39-41.6 wks) Gestational Age in Weeks/Days: 39 Weeks and 0 Days
[2024-05-05 07:07] LABS: HCT 37.5 % (36.0-46.0); HGB 12.7 g/dL (11.2-15.7); MCH 27.7 pg (27.0-33.0); MCHC 33.9 % (32.0-36.0); MCV 82 fL (80-95); MPV 11.5 fL (8.0-11.0); Platelet Count 225 10^3/uL (130-400); RBC 4.58 10^6/uL (3.93-5.22); RDW 13.9 % (11.7-14.6); RDW-SD 40.8 fL; WBC 16.79 10^3/uL (4.4-10.8)
[2024-05-05] MEDS: Acetaminophen 325 MG TAB 650 MG PO (08:41)
--- NOTE | 2024-05-05 15:49 | W.PM.OBPNV1 ---
Date of service: 05/06/24 Time of Service: 08:00 Assessment and Plan Assessment and plan (1) Term delivered: Status: Acute Assessment and plan: A: Nml recovery PPD#1; satisfied with experience off to a good start P: Desires discharge today; condoms are planned for contraception Supports in place at home, experienced parent Written instructions reviewed and given to pt F/up at 2 & 6 wkspostpartum Subjective Subjective Patient comments: No complaints, Pain well controlled, Tolerating diet and Flatus present Patient's Mood: happy baby status: Doing well, Nursing well, Rooming in and Strong Bonding Observed [place] feeding status: Exclusively breast feeding Exam Physical Exam Vital signs: Temp Pulse Resp BP Pulse Ox 97.9 F 81 16 134/80 98 05/05/24 13:00 05/05/24 13:00 05/05/24 13:00 05/05/24 13:00 05/05/24 13:00 Vital Signs Reviewed: Yes Constitutional Constitutional: no acute distress and cooperative HEENT Exam HEENT Exam: Normal Neck Exam Neck Exam: Normal Breast Exam Bilateral: Breast Exam: Normal and Soft Nipple Exam: Normal and Uninjured Respiratory Exam Respiratory Exam: Normal Cardiovascular Exam Cardiovascular Exam: Normal Abdominal Exam Abdomen: Other (soft, nontender) Fundal Exam Fundus: Below Umbilicus and Firm Rectal Exam Rectal Exam: Normal Exam Perineum: Intact and Normal Extremities Exam Extremity Exam: Normal, Full ROM and Warm to Touch Back/Spine/Pelvis Exam Back Exam: Normal Skin Exam Skin Exam: Normal Neurological Exam Neurological Exam: Normal Psychiatric Exam Psychiatric Exam: Normal Results Hemoglobin/Hematocrit: Hgb 12.7 g/dL (11.2-15.7) 05/05/24 06:10 Hct 37.5 % (36.0-46.0) 05/05/24 06:10 Abnormal Lab Findings: Abnormal Labs 05/05/24 06:10 WBC 16.79 H MPV 11.5 H
[2024-05-06] MEDS: Docusate Sodium 100 MG CAP PO (03:25)
[2024-05-06 09:06] VITALS: BP 123/94; PULSE 90; RESP 12; TEMP 36.9
--- NOTE | 2024-05-06 09:23 | W.PM.OBDISCH ---
Date of service: 05/06/24 Time of Service: 09:23 DS: Diagnosis Discharge Diagnosis (1) Term delivered: Status: Acute Discharge Plan Disposition Patient Disposition: Home Condition: Good Discharge Details Reason For Visit: Labor Admit Date/Time: 05/05/24 01:48 Admit Provider: Bridget Maddox Attending Provider: Bridget Maddox Primary Care Provider: Susan Mckeon Hospital Course Hospital Course: , nml course, desires discharge on PPD#1 Home Meds and New Rx's Prescriptions: No Action cholecalciferol (vitamin D3) 125 mcg (5,000 unit) capsule 125 mcg PO DAILY magnesium oxide 400 mg (241.3 mg magnesium) tablet 400 mg PO DAILY Qty: 60 4RF cetirizine [Zyrtec] 10 mg tablet 10 mg PO DAILY PRN (Reason: allergy symptoms) Qty: 30 1RF prenat.vits,edwin,toz-zmqv-xfgvs Tablet 1 tab PO DAILY Qty: 90 3RF Discharge Instructions Additional Instructions: Please keep your 2 and 6 wk appointments, call for any and all concerns. Stand Alone Forms: Instructions, Post Vaginal Deliver Activity:: Activity as Tolerated Equipment/Supplies:: No Equipment Needed Diet:: Normal Diet OB:DS Summary Summary Vaginal Delivery Method: Spontaneaous Contraception Discussed Contraception Discussed: Yes Contraceptive Plan: Foam/Condoms, [place] Gender-Baby A: Female weight: 7 lb 14.104 oz Status at Discharge Functional status at discharge: independent ambulation Overall status at discharge: patient is progressing back to baseline Mental Status: mental status grossly normal Speech and Movement: speech and movement normal and speech clear Mood: congruent mood Affect: normal affect Quality:SDOH Health Related Social Needs: No Data to Display Exam Physical Exam Vital signs: Temp Pulse Resp BP Pulse Ox 98.4 F 90 12 123/94 H 99 05/06/24 09:06 05/06/24 09:06 05/06/24 09:06 05/06/24 09:06 05/05/24 16:10 Constitutional Constitutional: no acute distress and cooperative HEENT Exam HEENT Exam: Normal Neck Exam Neck Exam: Normal Breast Exam Bilateral: Breast Exam: Normal and Soft Respiratory Exam Respiratory Exam: Normal Cardiovascular Exam Cardiovascular Exam: Normal Abdominal Exam Abdomen: Other (soft, nontender) Fundal Exam Fundus: Below Umbilicus and Firm Rectal Exam Rectal Exam: Normal Exam Perineum: Intact and Normal Extremities Exam Extremity Exam: Normal, Full ROM and Warm to Touch Back/Spine/Pelvis Exam Back Exam: Normal Skin Exam Skin Exam: Normal Neurological Exam Neurological Exam: Normal Psychiatric Exam Psychiatric Exam: Normal PFSH All Active Problems (Updated 05/05/24 @ 15:50 by Veronica Zendejas) Term delivered (Acute) BMI 34.0-34.9,adult (Acute) Medical History (Updated 05/05/24 @ 15:50 by Veronica Zendejas) Spontaneous onset of labor Ovarian cyst Tonsil stone Anxiety and depression Chlamydia Headache Lazy eye Childhood, resolved Surgical History History of excision of hemangioma (11/13/16) Abdomen Family History Mother Depression Anxiety Father Diabetes Essential hypertension Hypertension Brother CD (Crohn's disease) Brother Hepatitis C Grandmother Diabetes Breast cancer Grandfather , Cancer at age 70. 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) Pets and animals: Yes Pets and animals: dog(s), fish and other Details: rabbit Sexually active: Yes Do you think of yourself as: straight/heterosexual Current gender identity: female What is your relationship status?: How often do you talk on the phone with friends or family?: once per week How often do you get together with friends or relatives?: once per week How often do you attend roman catholic or worship services?: 4 or more times per year Do you belong to any clubs or organized social groups?: no Panel score (0-1 are the most socially isolated patients): 2 What type of physical activity do you participate in: walking, aerobic and weight lifting Duration: 30-45 minutes/day Frequency: 1-2 times per week Gail/Episcopal: Latter-Day Special gail needs: No Seatbelt use: always Helmet use: Yes Drive intox or ride w/intox over the road driver: No Do you feel safe in your relationship?: Yes Female Reproductive History Menstrual control method: none and condoms History History 5 Para 3 Hx # Term Pregnancies 3 Multiple births 0 Hx # Pregnancies 0 Ectopic pregnancies 0 AB induced 0 Hx Number of Living Children 3 AB spontaneous 1 Past Pregnancies Del. Date GA/Weeks # Preg Succ Route Wgt Sex Labor Lgth Anesthesia Location Prov Complic 01/23/17 37 No vaginal 5 lb 15 oz Female 5 hrs [facility] - [facility] 07/07/18 8 06/05/19 39 No vaginal 8 lb 1 oz Male 2 hrs 35 min Aneshama Quan CNM 04/02/21 39 No vaginal 6 lb 8 oz Female 4 G[facility] [place] Delivery Date: 01/23/17 Last Updated by: Bridget Maddox CNM water broke at 37 wks, went into labor which was fast. Difficulty with latch, jaundice. Tran Delivery Date: 07/07/18 Last Updated by: Violeta Zendejas missed SAB, took miso Delivery Date: 06/05/19 Last Updated by: Bridget Maddox CNM Roberto Delivery Date: 04/02/21 Last Updated by: RENE Monahan DS: Data Vitals/I&O Vitals and I&O: Vital Signs Temperature 98.4 F 05/06/24 09:06 Temperature Source Tympanic 05/05/24 01:55 Temperature Source Oral 05/06/24 09:06 Pulse 90 05/06/24 09:06 Pulse Rhythm Regular 05/06/24 09:06 Respiratory Rate 12 05/06/24 09:06 Blood Pressure 123/94 H 05/06/24 09:06 Blood Pressure Mean 103 05/06/24 09:06 Pulse Oximetry 99 05/05/24 16:10 Oxygen Delivery Method Room Air 05/05/24 01:55 Oxygen Flow Rate 0 05/05/24 01:55 Pain Level 1 05/06/24 09:06 Intake & Output 05/05/24 05/05/24 05/06/24 11:59 23:59 11:59 Intake Total 500 / 1050 550 / 1050 Output Total 1500 / 1500 Balance -1000 / -450 550 / -450 Weight 239 lb Intake: Oral 500 / 1050 550 / 1050 Output: Urine 1500 / 1500 Other: Urine Color Light Sol Pale Pale Urine Appearance Clear Clear Urine Odor None None Voiding Methods Toilet Toilet
[2024-05-06] MEDS: Hamamelis Leaf/Glycerin 100 EACH BOX PR (10:02)
[2024-05-06] MEDS: Dibucaine 1% 28 GM TUBE TP (10:02)
[2024-05-06] MEDS: Acetaminophen 325 MG TAB 650 MG PO (10:04)
[2024-05-06 20:08] VITALS: BP 134/93; PULSE 110
== END 2024-05-06 13:00 | disposition home or self-care (01) | DRG 807 ==
LOC: OBS 10:00 → BCD 10:01 → OBS 10:01 → BCD 10:02 → OBS 10:02
PROVIDERS: Admitting Provider Advanced Practice Midwife; PCP Nurse Practitioner Family; Visit Provider Advanced Practice Midwife
DX: O99.344 Other mental disorders complicating childbirth (principal); Z37.0 Single live birth; Z3A.39 39 weeks gestation of pregnancy; F41.8 Other specified anxiety disorders
CPT/HCPCS: 36415; 85027; 86850; 86900; 86901; J2590

== ENCOUNTER 2024-12-28 03:37 | Outpatient (CLI) | payer MEDICAID, SELFPAY ==
--- NOTE | 2024-12-30 10:38 | TELEFU_ITS ---
Date of service: 12/28/24 Time of Service: 10:39 Nutrition Note NOTE: Assessment: Zahra reports that she would like some guidance regarding losing weight or weight management. She is self reported 68 and 250 lbs which is a BMI of 39 kg/m2 c/w class 3 obesity. Zahra is currently and she is about 8 months post . Her diet recall shows that she typically has a sausage, egg, and cheese on a bagel with a sweetened coffee in the morning. She may grab a protein bar for lunch or as a snack. She may have some cracker/chip like snacks, then whatever she makes the family for dinner. In the evening when the house is quiet she may have a some sugary and salty snacks. Zahra drinks 80 to 100 oz. of water daily. Zahra is busy during the day taking care of and running after several young children (3 or 4?) Of note, Zahra describes many times just grabbing what is easy for meals and snacks given the nature of day with caretaking and activity. Estimated energy needs for weight reduction considering breast feeding are 1800 to 2300 kcal/day (REE x 1.2 + 300 () - 1000 to 1500 kcals per day for weight loss) Nutrition Diagnosis: Class 3 obesity related to excess energy intake as evidenced by BMI of 39 kg/m2. Intervention: Acknowledged Zahra's excellent efforts and staying well hydrated with water. Also acknowledged the challenge of eating healthfully as well as the tendency to eat comfort foods when the house is quiet in the evening and you finally get to chill out. We discussed that it is helpful that she does not graze all day long. Her food choices are calorie dense at times. Suggested several ideas to lower her caloric intake without sacrificing the volume of food to keep her satiated. Suggested bagel thins or low calorie Canadian muffins for her breakfast sandwich. Encouraged her to meal and snack prep high protein, complex carbohydrate foods when she has blocks of time to do so. Suggested hard boiling some eggs in bulk, putting cheese cubes, nuts and dried fruits in containers to grab in the fridge. Suggested making a roast on the weekends to use in various meals throughout the week as well as prepping raw fruits and veggies to grab as snacks. I provided her with a list of high protein meals and snacks for a week to give her some ideas. Zahra verbalized an excellent understanding of the information presented and developed some action plans arou nd what we discussed. Monitoring and Evaluation: 1. Zahra will monitor her success with her action plans and adjust them as needed. 2. Zahra will check in with me via email with questions or concerns or help with developing further action plans. 3. She and I can evaluate her nutrition care plan ongoing and adjust as needed. Thank you for this referral. Time Spent in Nutritional Counseling and Treatment: 25 minutes
== END 2024-12-28 03:38 | disposition home or self-care (01) ==
LOC: DS 03:37
PROVIDERS: PCP Nurse Practitioner Family; Visit Provider Dietitian, Registered
DX: E66.9 Obesity, unspecified (principal)
CPT/HCPCS: 00123; 97802